=== PATIENT | female | born 1970 | race Caucasian/White ===

== ENCOUNTER 2022-11-17 08:18 | Emergency (ER) | payer OTHER, MEDICAID, SELFPAY ==
[2022-11-17 08:29] VITALS: BP 148/108; PULSE 94; RESP 18; O2SAT 98; BMI 31.3
--- NOTE | 2022-11-17 08:53 | ED_ITS ---
HPI - General Adult General Time Seen by Provider: 08:53 Date Seen: 11/17/22 Chief complaint: Back Injury/Pain Stated complaint: Severe back pain Time Seen by Provider: 11/17/22 08:19 Source: patient Mode of arrival: ambulatory Limitations: no limitations History of Present Illness HPI narrative: Patient is a 52 year white female who injured her back while doing exercise class at the [facility]. She was stretching out her legs on a chair and had some pain in her right low back. No radicular symptoms, no bowel or bladder symptoms, no fever chills perineal numbness. She has otherwise been healthy chronic, has not had chronic low back pain Related Data Previous Rx's Medication Instructions Recorded celecoxib 200 mg capsule (Celebrex) 200 mg PO DAILY #14 caps 11/17/22 Allergies Allergy/AdvReac Type Severity Reaction Status Date / Time No Known Drug Allergies Allergy Verified 11/17/22 08:32 Review of Systems Status of ROS: Reports: 6 or more systems reviewed and unremarkable except as noted in History and below PFSH PFSH Social History Smoking Status: Never smoker Second hand tobacco smoke exposure: No How often do you have a drink containing alcohol: never How often do you have six or more drinks on one occasion: Never AUDIT-C Alcohol total score: 0 Non-prescribed substance use: denies use service: No Exam Narrative: Exam Narrative: Objective: Patient ambulates normally she stands erect position Normal extremities lower, strength sensation Limited range of motion secondary pain in her right low back, no palpable te nderness, no bruising or swelling Const: Vital Signs, click to edit/add: Vital Signs - 24 hr 11/17/22 08:29 Pulse Rate [Left P ulse Oximeter] 94 Respiratory Rate 18 Blood Pressure [Ri ght Upper Arm] 148/108 H Pulse Oximetry 98 Oxygen Delivery Me thod Room Air Course Vital Signs Vital signs: Initial Vital Signs Pulse Rate 94 11/17/22 08:29 Pulse Rhythm 11/17/22 08:29 Pulse Strength 3+ Normal 11/17/22 08:29 Respiratory Rate 18 11/17/22 08:29 Blood Pressure 148/108 H 11/17/22 08:29 Blood Pressure Mean 121 11/17/22 08:29 Pulse Oximetry 98 11/17/22 08:29 Oxygen Delivery Method 11/17/22 08:29 Vital Signs Pulse Rate 94 11/17/22 08:29 Respiratory Rate 18 11/17/22 08:29 Blood Pressure 148/108 H 11/17/22 08:29 Pulse Oximetry 98 11/17/22 08:29 Oxygen Delivery Method 11/17/22 08:29 Pulse Rate 94 11/17/22 08:29 Respiratory Rate 18 11/17/22 08:29 Blood Pressure 148/108 H 11/17/22 08:29 Pulse Oximetry 98 11/17/22 08:29 Oxygen Delivery Method 11/17/22 08:29 Medical Decision Making MDM Narrative Medical decision making narrative: Patient has a strain to her lower right low back and no radiculitis type symptoms, no symptoms of herniated disc. At this point. I would recommend we do an injection of Toradol and morphine, will give her Celebrex for home and she can use Tylenol as well, ice, position of comfort, off activities for a week. Recheck with regular doctor at that time before resumes activity. Discharge Plan Discharge Clinical Impression: Low back pain Patient Disposition: Home w/ Parent or Adult Condition: Stable Additional Instructions: Light activity, ice, position of comfort. Celebrex and Tylenol at home. Injections today might make you tired, light activity, no driving. Would not recommend we repeat teaching activities until about a week or cleared by her regular doctor. Return to ED as needed. Activity Level: Light activity Discharge Diet: Regular Prescriptions: New celecoxib [Celebrex] 200 mg capsule 200 mg PO DAILY Qty: 14 2RF Stand Alone Forms: [employer] Info Instructions
[2022-11-17] MEDS: MORPHINE 10 MG/ML inj 7.5 MG IM (09:09)
[2022-11-17] MEDS: KETOROLAC 30 MG/ML inj 60 MG IM (09:09)
== END 2022-11-17 09:34 | disposition home or self-care (01) ==
PROVIDERS: Emergency Provider Family Medicine; PCP Family Medicine
DX: M54.50 Low back pain, unspecified (principal)
CPT/HCPCS: 96372; 99283; 99284; J1885; J2270